=== PATIENT | male | born 1980 | race Two or more races ===

== ENCOUNTER 2019-01-13 14:57 | Emergency (ER) | payer SELFPAY ==
[2015-10-07 11:29] VITALS: BP 129/96
== END 2019-01-13 16:46 | disposition left against medical advice (07) ==
LOC: ER 14:57
DX: S01.81XA Laceration without foreign body of other part of head, initial encounter (principal); Z53.21 Procedure and treatment not carried out due to patient leaving prior to being seen by health care provider; X58.XXXA Exposure to other specified factors, initial encounter; Y93.89 Activity, other specified; Y92.89 Other specified places as the place of occurrence of the external cause; Y99.8 Other external cause status